=== PATIENT | female | born 1985 | race Caucasian/White ===

== ENCOUNTER 2017-05-12 16:37 | Emergency (ER) | payer MEDICAID, OTHER ==
[~2017-05-12] VITALS: Ht 172.7 cm; Wt 81.0 kg
[~2017-05-12 16:37] MED LIST: BENZ1CAP34 PO; ZITHTAB PO
[2017-05-12 16:40] VITALS: BP 136/90; PULSE 96; RESP 16; TEMP 99.7; O2SAT 97
[2017-05-12] MEDS ORDERED: HYDR-3533 PO (16:49)
[2017-05-12] MEDS ORDERED: CORTI10A LEFT EAR (16:49)
--- NOTE | 2017-05-12 16:52 | PD ---
HPI Chief Complaint: ENT Complaint Time Seen by Provider: 16:49 Travel History International Travel<30 days: No Contact w/Intl Traveler<30days: No Traveled to known affect area: No History of Present Illness HPI 32-year-old female that presents to the ED for evaluation of left ear pain. This has been ongoing for 2 days. No drainage. Pain with range of motion of the ear as well. No recent injuries or swimming. Per patient she's had a low- grade fever. She did get a cold recently but that is better. No cough or runny nose. Pain per patient is 8 out of 10. OTC meds not helping. PFSH Past Medical History Diminished Hearing: No ?: Not LMP: 2 WEEKS AGO Past Surgical History Section: Yes Social History Alcohol Use: Yes (OCCASIONALLY) Tobacco Use: No Substance Use: No Allergies-Medications (Allergen,Severity, Reaction): Coded Allergies: No Known Allergies (Verified , 05/12/17) Reported Meds & Prescriptions Reported Meds & Active Scripts Active Kaxzkilz-Saydwnmum-EL Otic Drops (Neomycin/Polymyxin/Hydrocortisone) 1 % Soln 4 Drop LEFT EAR QID Lortab (Hydrocodone-Acetaminophen) 5-325 Mg Tab 1 Tab PO Q6H PRN Review of Systems Except as stated in HPI: all other systems reviewed are Neg Physical Exam Narrative GENERAL: Well-nourished, well-developed patient in no apparent distress. SKIN: Warm and dry. HEAD: Atraumatic. Normocephalic. EYES: Pupils equal and round reactive to light and accommodation. No scleral icterus. No injection or drainage. ENT: No nasal bleeding or discharge. Mucous membranes pink and moist. TMs are clear with no sign of infection or perforation. Left ear canal is inflamed and swollen with exudates noted very tender to touch especially with movement of the pinna. No mastoid tenderness. Ear canals are intact bilaterally. No lymphadenopathy. Nostril mucosa is red and moist with clear mucus noted. No sinus tenderness to palpation noted. Tonsils are not enlarged or swollen. No ulvua Deviation. Tongue is midline. NECK: Trachea midline. No JVD. No meningeal signs noted CARDIOVASCULAR: Regular rate and rhythm. RESPIRATORY: No accessory muscle use. Clear to auscultation. Breath sounds equal bilaterally. GASTROINTESTINAL: Abdomen soft, non-tender, nondistended. Hepatic and splenic margins not palpable. MUSCULOSKELETAL: Extremities without clubbing, cyanosis, or edema. No obvious deformities. NEUROLOGICAL: Awake and alert. No obvious cranial nerve deficits. Motor grossly within normal limits. Five out of 5 muscle strength in the arms and legs. Normal speech. PSYCHIATRIC: Appropriate mood and affect; insight and judgment normal. Data Data Last Documented VS Vital Signs Date Time Temp Pulse Resp B/P Pulse Ox O2 Delivery O2 Flow Rate FiO2 05/12/17 16:40 99.7 96 16 136/90 97 Orders Acetamin-Hydrocod 325-5 Mg ([place] 5-325 (05/12/17 17:00) [facility] Medical Decision Making Medical Screen Exam Complete: Yes Emergency Medical Condition: Yes Medical Record Reviewed: Yes Differential Diagnosis Otitis media versus otitis externa versus sinusitis Narrative Course 32-year-old female that presents to the ED for evaluation left ear pain. Patient was properly examined and was found to have signs and symptoms very consistent with otitis externa. Patient will be treated for this with Corticosporin out of As well as Lortab for pain. Told to follow up with PCP. See ED worsening symptoms. Take OTC medicines as needed. Diagnosis Primary Impression: Otitis externa of left ear Qualified Code: H60.332 - Acute swimmer's ear of left side Patient Instructions: General Instructions Additional Instructions: Take medications as prescribed. Follow-up with PCP. See ED for any worsening symptoms. Do not drink or drive while taking pain medication. Apply ice or heat as needed for pain Motrin or Tylenol for pain. Med/Other Pt SpecificInfo: Prescription(s) given Scripts Tpaluchv-Gbkdrzykw-UK Otic Drops 1 % Soln4 Drop LEFT EAR QID #1 BOTTLE Ref 0 Prov:Edmundo Wren MD 05/12/17 Hydrocodone-Acetaminophen (Lortab)5-325 Mg Tab1 Tab PO Q6H PRN (PAIN) #10 TAB Prov:Edmundo Wren MD 05/12/17 Disposition: 01 DISCHARGE HOME Condition: Stable Ariel Sanchez May 12, 2017 16:52
[2017-05-12] MEDS ORDERED: ACETAMINOPHEN/HYDROcodone 325 MG/5 MG TAB PO ONE (17:00)
[2017-05-13] MEDS ORDERED: CLIN1CAP5 PO (21:35)
== END 2017-05-12 17:22 | disposition home or self-care (01) ==
LOC: PHEFT 16:37
DX: H60.332 Swimmer's ear, left ear (principal)
CPT/HCPCS: 99283

== ENCOUNTER 2017-05-13 18:25 | Emergency (ER) | payer MEDICAID ==
[~2017-05-13] VITALS: Ht 172.7 cm; Wt 82.6 kg
[~2017-05-13 18:25] MED LIST changes: +CORTI10A LEFT EAR; +HYDR-3533 PO
[2017-05-13 18:29] VITALS: BP 151/80; PULSE 95; RESP 16; TEMP 101.2; O2SAT 96
[2017-05-13 19:25] VITALS: BP 149/79; PULSE 78; RESP 18; TEMP 100.1; O2SAT 98
[2017-05-13] MEDS ORDERED: KETOROLAC TROMETHAMINE 30 MG/ML (IVP) VIAL IV PUSH ONE (20:00)
[2017-05-13] MEDS ORDERED: CLINDAMYCIN INJ 900 MG in SODIUM CHLORIDE 0.9% INJ 100 ML IV ONE (20:00)
[2017-05-13] MEDS ORDERED: SODIUM CHLOR 0.9% 1000 ML INJ 1,000 ML IV ONE (20:00)
[2017-05-13] MEDS ORDERED: NEOMYCIN/POLYMYXIN/HYDROCORT OTIC SOLN 10 ML BTL LEFT EAR ONE (20:00)
[2017-05-13] MEDS ORDERED: ACETAMINOPHEN 325 MG TAB PO ONE (20:00)
[2017-05-13 20:18] LABS: BLOOD, URINE TRACE (NEG); GLUCOSE,URINE NEG (NEG); KETONE, URINE NEG (NEG); NITRITE,URINE NEG (NEG); PH, URINE 7.5 (5.0-8.5)
[2017-05-13 20:20] LABS: AUTOMATED NEUTROPHIL # 13.8 TH/MM3 (1.8-7.7); BASOPHIL % 0.3 % (0.0-2.0); EOSINOPHIL # 0.1 TH/MM3 (0-0.4); EOSINOPHIL % 0.6 % (0.0-4.0); HEMATOCRIT 40.5 % (35.0-46.0); HEMO FLAGS DIFF FINAL; LYMPH % 10.3 % (9.0-44.0); LYMPHOCYTE # 1.7 TH/MM3 (1.0-4.8); MEAN CELL VOLUME 89.4 FL (80.0-100.0); MEAN CORPUSCULAR HEMOGLOBIN 30.7 PG (27.0-34.0); MEAN CORPUSCULAR HGB CONC 34.3 % (32.0-36.0); MONO % 5.6 % (0.0-8.0); NEUT % 83.2 % (16.0-70.0); PLATELET COUNT 308 TH/MM3 (150-450); RED BLOOD COUNT 4.53 MIL/MM3 (4.00-5.30); RED CELL DISTRIBUTION WIDTH 11.7 % (11.6-17.2); WHITE BLOOD COUNT 16.5 TH/MM3 (4.0-11.0)
[2017-05-13 20:27] LABS: URINE COLOR YELLOW (YELLW/STRAW)
[2017-05-13 20:28] LABS: COMMENT (UR) CULT NOT INDICATED; CULTURE IF INDICATED CULT NOT INDICATED
[2017-05-13 20:30] LABS: POTASSIUM 3.8 MEQ/L (3.5-5.1)
[2017-05-13 20:33] LABS: BICARBONATE 26.6 MEQ/L (21.0-32.0)
[2017-05-13] MEDS ORDERED: IOHEXOL 350 MG/ML 10 ML VIAL (for RAD DIAG) IV ONE (20:54)
--- NOTE | 2017-05-13 21:16 | RADRPT ---
EXAM DATE/TIME: 05/13/2017 20:40 [facility] COMPARISON: No previous studies available for comparison. INDICATIONS : Left sided facial swelling and ear pain. Rule out abscess. IV CONTRAST: 70 cc Omnipaque 350 (iohexol) IV RADIATION DOSE: 29.99 CTDIvol (mGy) MEDICAL HISTORY : None SURGICAL HISTORY : ENCOUNTER: Initial ACUITY: 4 - 6 days PAIN SCALE: 6/10 LOCATION: Left facial TECHNIQUE: Volumetric scanning of the facial bones was performed. Using automated exposure control and adjustme nt of the mA and/or kV according to patient size, radiation dose was kept as low as reasonably achiev able to obtain optimal diagnostic quality images. DICOM format image data is available electronicall y for review and comparison. FINDINGS: Soft tissue swelling and inflammatory changes around the left external auditory canal, possibly secon arya to an otitis externa. There is some surrounding cellulitis. There is no abnormal fluid collectio n to suggest abscess. Paranasal sinuses are clear. No acute bony abnormalities. CONCLUSION: 1. Soft tissue swelling and inflammatory changes around the left external auditory canal with narrowi ng of the left external auditory canal. This is characteristic of an otitis externa but without evide nce for abscess. Victorino Kessler MD on May 13, 2017 at 21:10 Board Certified Radiologist. This report was verified electronically.
[2017-05-13] MEDS ORDERED: ONDANSETRON HCL 4 MG/2 ML VIAL IV PUSH ONE (21:30)
[2017-05-13] MEDS ORDERED: MORPHINE SULFATE 8 MG/ML INJ IV PUSH ONE (21:30)
[2017-05-13] MEDS ORDERED: CLIN1CAP5 PO (21:35)
[2017-05-13 21:39] VITALS: BP 118/66; PULSE 87; RESP 18; TEMP 99.5; O2SAT 99
--- NOTE | 2017-05-13 21:41 | PD ---
HPI Chief Complaint: ENT Complaint Time Seen by Provider: 19:48 Travel History International Travel<30 days: No Contact w/Intl Traveler<30days: No Traveled to known affect area: No History of Present Illness HPI 32-year-old female presents to the emergency department for complaint of left ear pain with swelling posterior radicular pain and left facial pain. Patient has had fever and reported chills. In triage temperature was elevated to 101.2 F. Patient reportedly took ibuprofen 400 mg at noon is taking no medications for fever subsequently. Patient was recently seen in the emergency department as of yesterday prescribed antibiotic ear drops along with Lortab 5/325. Patient states she does not think that the Lortab isn't giving her adequate pain relief. Patient denies any sinus pressure drainage but does complain of referred pain to the left face postauricular area neck and thinks that her left eye is drooping. Patient denies any visual disturbance. Family member at bedside does not report any facial changes. Patient denies any neck pain or stiffness difficulty swallowing cough congestion shortness of breath nausea vomiting diarrhea flank pain dysuria frequency urgency joint pain swelling or skin rash. Patient denies any recent known injury to the ear or swimming. Patient has not noticed any postauricular swelling. Patient rates pain 7/10 in intensity. Patient denies . Last menses 2 weeks ago. PFSH Past Medical History Narrative Medical ; occasional alcohol use; nursing notes reviewed Medical History: Denies Significant Hx Hx Anticoagulant Therapy: No Diabetes: No Diminished Hearing: No Tetanus Vaccination: Unknown ?: Not Past Surgical History Section: Yes Social History Alcohol Use: Yes (OCCASIONALLY) Tobacco Use: No Substance Use: No Allergies-Medications (Allergen,Severity, Reaction): Coded Allergies: No Known Allergies (Verified , 05/14/17) Reported Meds & Prescriptions Reported Meds & Active Scripts Active Ibuprofen 800 Mg Tab 800 Mg PO Q8H PRN Tylenol-Codeine #3 (Acetaminophen-Codeine) 300-30 mg Tab 1 Tab PO Q6HR PRN Clindamycin (Clindamycin HCl) 150 Mg Cap 300 Mg PO Q6H 7 Days Ddwhjqpg-Vrqypihzk-YU Otic Drops (Neomycin/Polymyxin/Hydrocortisone) 1 % Soln 4 Drop LEFT EAR QID Lortab (Hydrocodone-Acetaminophen) 5-325 Mg Tab 1 Tab PO Q6H PRN Review of Systems Except as stated in HPI: all other systems reviewed are Neg Physical Exam Narrative GENERAL: Well-developed well-nourished female in no acute respiratory distress SKIN: Warm and dry. HEAD: Normocephalic. EYES: No scleral icterus. No injection or drainage. ENT: Mucous membranes moist airway is patent posterior pharynx no redness dullness or exudative change right tympanic membrane no redness no dullness to loss of landmarks; left tympanic membrane is obscured due to external auditory canal edema erythema without drainage. NECK: Supple, trachea midline. No JVD or lymphadenopathy. CARDIOVASCULAR: Regular rate and rhythm without murmurs, gallops, or rubs. RESPIRATORY: Breath sounds equal bilaterally. No accessory muscle use. GASTROINTESTINAL: Abdomen soft, non-tender, nondistended. MUSCULOSKELETAL: No cyanosis, or edema. BACK: Nontender without obvious deformity. No CVA tenderness. Data Data Last Documented VS Vital Signs Date Time Temp Pulse Resp B/P Pulse Ox O2 Delivery O2 Flow Rate FiO2 05/13/17 22:41 88 18 116/86 99 05/13/17 21:39 99.5 Room Air Orders Basic Metabolic Panel (Bmp) (05/13/17 19:48) Complete Blood Count With Diff (05/13/17 19:48) Blood Culture (05/13/17 19:48) Iv Access Insert/Monitor (05/13/17 19:48) Acetaminophen (Tylenol) (05/13/17 20:00) Sodium Chlor 0.9% 1000 Ml Inj (Ns 1000 M (05/13/17 20:00) Lactic Acid (05/13/17 19:48) Ed Urine Pregnancytest Poc (05/13/17 19:48) Ketorolac Inj (Toradol Inj) (05/13/17 20:00) Urinalysis - C+S If Indicated (05/13/17 19:48) Gtsgxdan-Rxdcstwd-Jx Otic Soln (Cortispo (05/13/17 20:00) Ct Facial Bones W Iv Contrast (05/13/17 ) Clindamycin Inj (Cleocin Inj) (05/13/17 20:00) Iohexol 350 Inj (Omnipaque 350 Inj) (05/13/17 20:54) Morphine Inj (Morphine Inj) (05/13/17 21:30) Ondansetron Inj (Zofran Inj) (05/13/17 21:30) Labs Laboratory Tests Test 05/13/17 05/13/17 05/13/17 19:55 20:05 20:10 White Blood Count 16.5 TH/MM3 Red Blood Count 4.53 MIL/MM3 Hemoglobin 13.9 GM/DL Hematocrit 40.5 % Mean Corpuscular Volume 89.4 FL Mean Corpuscular Hemoglobin 30.7 PG Mean Corpuscular Hemoglobin 34.3 % Concent Red Cell Distribution Width 11.7 % Platelet Count 308 TH/MM3 Mean Platelet Volume 7.4 FL Neutrophils (%) (Auto) 83.2 % Lymphocytes (%) (Auto) 10.3 % Monocytes (%) (Auto) 5.6 % Eosinophils (%) (Auto) 0.6 % Basophils (%) (Auto) 0.3 % Neutrophils # (Auto) 13.8 TH/MM3 Lymphocytes # (Auto) 1.7 TH/MM3 Monocytes # (Auto) 0.9 TH/MM3 Eosinophils # (Auto) 0.1 TH/MM3 Basophils # (Auto) 0.0 TH/MM3 CBC Comment DIFF FINAL Differential Comment Sodium Level 138 MEQ/L Potassium Level 3.8 MEQ/L Chloride Level 103 MEQ/L Carbon Dioxide Level 26.6 MEQ/L Anion Gap 8 MEQ/L Blood Urea Nitrogen 10 MG/DL Creatinine 0.96 MG/DL Estimat Glomerular Filtration 68 ML/MIN Rate Random Glucose 93 MG/DL Calcium Level 9.0 MG/DL Urine Color YELLOW Urine Turbidity CLEAR Urine pH 7.5 Urine Specific [place] 1.011 Urine Protein NEG mg/dL Urine Glucose (UA) NEG mg/dL Urine Ketones NEG mg/dL Urine Occult Blood TRACE Urine Nitrite NEG Urine Bilirubin NEG Urine Leukocyte Esterase NEG Urine Squamous Epithelial 6-8 /hpf Cells Microscopic Urinalysis Comment CULT NOT INDICATED Lactic Acid Level 1.4 mmol/L MDM Medical Decision Making Medical Screen Exam Complete: Yes Emergency Medical Condition: Yes Medical Record Reviewed: Yes Interpretation(s) Last Impressions Maxillofacial CT 05/13/17 0000 Signed Impressions: Service Date/Time: April 20:40 - CONCLUSION: 1. Soft tissue swelling and inflammatory changes around the left external auditory canal with narrowing of the left external auditory canal. This is characteristic of an otitis externa but without evidence for abscess. Victorino Kessler MD CBC & BMP Diagram 05/13/17 19:55 Vital Signs Date Time Temp Pulse Resp B/P Pulse Ox O2 Delivery O2 Flow Rate FiO2 05/13/17 19:25 100.1 78 18 149/79 98 Room Air 05/13/17 18:29 101.2 95 16 151/80 96 Differential Diagnosis Otalgia otitis media otitis externa Narrative Course IV access obtained specimens collected and sent for resulting imaging studies ordered Imaging study reveals no acute process patient administered IV antibiotics and pain medication Symptomatic improvement patient is stable for outpatient management Diagnosis Primary Impression: Otitis externa of left ear Referrals: Ear / Nose / Throat Specialist as needed Primary Care Physician call for appointment Patient Instructions: General Instructions, Narcotic given in the ED Additional Instructions: Increase fluid hydration Follow-up with your primary care provider call office for appointment and ENT as needed Monitor temperature every 4 hours with thermometer and take as needed ibuprofen/ Advil/Motrin 600 mg as often as every 6 hours as needed for fever 100.4F or greater or pain associated with inflammation May use acetaminophen/Tylenol every 4 hours as needed for fever 100.4F or greater May take 650 mg as often as every 4-6 hours; if however taking Lortab5/ 325 ---Take 325 mg along with a Lortab in order to have and antipyretic dose. May use ice pack intermittently or more moist compresses intermittently to left face/ear area for comfort Complete course of antibiotic eardrops as prescribed yesterday Complete course of oral antibiotic as prescribed Be aware that narcotic pain medication may impair judgment, delay reaction time , increased risk for fall, cause constipation, and should not be taken if driving, handling heavy equipment, or drinking alcoholic beverages. Return to the emergency department for any concerns or change in condition Med/Other Pt SpecificInfo: Prescription(s) given Scripts Clindamycin 150 Mg [id number] Mg PO Q6H 7 Days Ref 0 Prov:Kallie Sotomayor MD 05/13/17 Disposition: 01 DISCHARGE HOME Condition: Stable Kallie Sotomayor MD May 13, 2017 21:41
[2017-05-13 22:06] VITALS: RESP 18
[2017-05-13 22:41] VITALS: BP 116/86
[2017-05-14] MEDS ORDERED: IBUP800T23 PO (13:42)
[2017-05-14] MEDS ORDERED: TYLETAB34 PO (13:42)
== END 2017-05-13 22:42 | disposition home or self-care (01) ==
LOC: PHED 18:25
DX: H60.92 Unspecified otitis externa, left ear (principal)
CPT/HCPCS: 70487; 80048; 81001; 83605; 84703; 85025; 87040; 96365; 96375; 99285; J1885; J2270; J2405; J7030; Q9967

== ENCOUNTER 2017-05-14 13:03 | Emergency (ER) | payer MEDICAID ==
[~2017-05-14 13:03] MED LIST changes: -BENZ1CAP34 PO; +CLIN1CAP5 PO; -ZITHTAB PO
[2017-05-14 13:12] VITALS: BP 135/79; PULSE 76; RESP 20; TEMP 98.5; O2SAT 97
--- NOTE | 2017-05-14 13:41 | PD ---
HPI Chief Complaint: ENT Complaint Time Seen by Provider: 13:10 Travel History International Travel<30 days: No Contact w/Intl Traveler<30days: No Traveled to known affect area: No History of Present Illness HPI 32-year-old female presents to the emergency room requesting refills of Lortab. Patient was given numbers Lortab 2 days ago for otitis externa. States this is the worst pain she has ever been through in her life, worse than childbirth. Patient took the medication as prescribed but ran out this morning. She has also been taking her prescribed eardrops. Patient came back to the emergency room yesterday for reevaluation stating her pain at significantly increased and had a workup done for mastoiditis. States she was given morphine while here but not discharged with any pain medication. She was discharged with clindamycin which she has not started yet. Patient does not have a primary care physician or ENT to follow up with. PFSH Past Medical History Hx Anticoagulant Therapy: No Diabetes: No Diminished Hearing: No Past Surgical History Section: Yes Social History Alcohol Use: Yes (OCCASIONALLY) Tobacco Use: No Substance Use: No Allergies-Medications (Allergen,Severity, Reaction): Coded Allergies: No Known Allergies (Verified , 05/14/17) Reported Meds & Prescriptions Reported Meds & Active Scripts Active Clindamycin (Clindamycin HCl) 150 Mg Cap 300 Mg PO Q6H 7 Days Aphiwyuv-Iuazqjjge-DS Otic Drops (Neomycin/Polymyxin/Hydrocortisone) 1 % Soln 4 Drop LEFT EAR QID Lortab (Hydrocodone-Acetaminophen) 5-325 Mg Tab 1 Tab PO Q6H PRN Review of Systems Except as stated in HPI: all other systems reviewed are Neg Physical Exam Narrative GENERAL: Well-nourished, well-developed female in no acute distress. Afebrile. Ambulatory. SKIN: Focused skin assessment warm/dry. HEAD: Normocephalic. EYES: No scleral icterus. No injection or drainage. NECK: Supple, trachea midline. No JVD or lymphadenopathy. EARS: Right ear canal within normal limits, tympanic membrane without erythema, dullness or perforation. Left ear canal has a wick in place. CARDIOVASCULAR: Regular rate and rhythm without murmurs, gallops, or rubs. RESPIRATORY: Breath sounds equal bilaterally. No accessory muscle use. Data Data Last Documented VS Vital Signs Date Time Temp Pulse Resp B/P Pulse Ox O2 Delivery O2 Flow Rate FiO2 05/14/17 13:12 98.5 76 20 135/79 97 MDM Medical Decision Making Medical Screen Exam Complete: Yes Emergency Medical Condition: Yes Medical Record Reviewed: Yes Differential Diagnosis Otitis externa, otitis media, eustachian tube dysfunction, medication refill Narrative Course 32-year-old female presents to the emergency room requesting refill of Lortab. Patient was given #10 Lortab 2 days ago for diagnosis of otitis externa. States this is the worst pain she has ever had in her life and she ran out of the medication. She has not followed up because she does not have a primary care physician or insurance at this time. Yesterday she had a workup for mastoiditis which was negative. She was discharged with oral antibiotics which she has not started yet. States she has been taking with topical antibiotics as prescribed. Physical exam shows wick in place from yesterday's visit. She was informed that it is against emergency room policy to refill narcotic pain medication. Patient is crying in pain. Eforsce negative. She was offered a less addictive, less potent pain medication, Tylenol 3. Patient was instructed to follow up with a primary care physician for ongoing care or return for worsening symptoms. She understands and agrees to plan. Diagnosis Primary Impression: Otitis externa of left ear Qualified Code: H60.332 - Acute swimmer's ear of left side Referrals: Primary Care Physician Patient Instructions: General Instructions, Medication Refill, ED Additional Instructions: Rest and drink plenty of fluids. Take Tylenol 3 as directed, as needed for pain. You can take ibuprofen with food at the same time for added benefit. Do not take either more than directed. Do not drink alcohol or drive while taking Tylenol 3. Follow-up with a primary care physician. Return to the emergency room for worsening symptoms. Med/Other Pt SpecificInfo: Prescription(s) given Disposition: 01 DISCHARGE HOME Condition: Stable Kami Sellers May 14, 2017 13:41
[2017-05-14] MEDS ORDERED: TYLETAB34 PO (13:42)
[2017-05-14] MEDS ORDERED: IBUP800T23 PO (13:42)
== END 2017-05-14 14:07 | disposition home or self-care (01) ==
LOC: PHEFT 13:03
DX: H60.332 Swimmer's ear, left ear (principal)
CPT/HCPCS: 99283